=== PATIENT | female | born 1970 | race Caucasian/White ===

== ENCOUNTER 2025-06-04 13:26 | Outpatient (AMB) | payer OTHER, SELFPAY ==
--- NOTE | 2025-06-03 14:05 | A.PHYSOV_ITS ---
Vital Signs 06/04/25 13:47 Height 5 ft 6.5 in Weight 160 lb BMI 25.4 Intake Visit Reasons: B/L KNEE INJECTIONS Intake Note: Patient is a 55 year old female here for bilateral knee injections. Waste Handling Technician Required: No Allergies nitrofurantoin (From Macrobid) Allergy (Unknown, Verified 06/04/25 13:42) Unknown [facility] Surgical History H/O tubal ligation H/O: hysterectomy H/O gastric bypass Previous section History of back surgery Social History Alcohol intake: current Alcohol intake frequency: does not drink Patient Tobacco Use Status: Never used Tobacco Physical Exam Vital Signs: BMI result Body Mass Index 25.4 Office Procedures AMB Knee Injection AMB Knee Injection Procedure Details: Bilateral Knee injection: The risks, benefits and complications of the left knee injection were discussed with the patient including but not limited to increased serum glucose, infection, nerve pain, fat atrophy, pigment augmentation, bleeding and pain. All questions were answered to the patient's satisfaction. Verbal consent was obtained. The patient was eager to proceed. Using aseptic technique with Betadine, ethyl chloride was then used to desensitize the skin. Using a 22-gauge needle 40 mg of Kenalog and 3 mL 2% lidocaine were injected into the knee joint. A Band-Aid was applied. Patient tolerated the procedure well without immediate complication. Postinjection instructions were given. The procedure was repeated on the right. Knee Injection - : Bilateral All charges added?: Procedure code (CPT) selection complete Office Meds Kenalog 40 mg/mL suspension for injection Performing Provider: KASIA Onofre Performing Location: [facility] Administered by: KASIA Onofre on 06/04/25 14:16 Dose Route Admin Location Dispensed Lot Number Expiration Date [facility] Software Installation Engineer 40 mg intra-articular 1 mL [id number] [employer] Total Dispensed Waste 1 mL 0 % lidocaine (PF) 20 mg/mL (2 %) injection solution Performing Provider: KASIA Onofre [facility] Administered by: KASIA Onofre on 06/04/25 14:16 Dose Route Admin Location Dispensed Lot Number Expiration Date [facility] Software Installation Engineer 60 mg intra-articular 50 mL [id number] Total Dispensed Waste 50 mL 0 % Assessment & Plan Assessment & Plan (1) Primary osteoarthritis of knees, bilateral: Code(s): M17.0 - Bilateral primary osteoarthritis of knee Category: Medical Plan Ms. Todd is a 55-year-old female seen in evaluation today for bilateral knee osteoarthritis. Today she consented to bilateral knee cortisone injection. She was given post-injection instructions, recommend: Moist heat compresses for 15 minutes 5 times daily. She will continue low-impact activities such as walking, biking and swimming. Follow-up with our office as needed. Thank you for allowing me to participate in the care of your patient. Orders: Orders AMB Knee Injection Today M17.0 - Bilateral primary osteoarthritis of knee Coding Level of Care Code Procedure Only Diagnoses Primary osteoarthritis of knees, bilateral M17.0 CPT Codes AMB Knee Injection - Hip/Bursa Injection - : Bilateral ([id number])
[2025-06-04 13:47] VITALS: BMI 25.4
== END 2025-06-04 14:14 | disposition home or self-care (01) ==
LOC: HO.HPHYS 13:26
PROVIDERS: Visit Provider Physician Assistant
DX: M17.0 Bilateral primary osteoarthritis of knee (principal)
CPT/HCPCS: 20610

== ENCOUNTER → 2025-06-04 13:26 | Outpatient (BNVA) | payer OTHER, SELFPAY | PROVIDERS: Visit Provider Physician Assistant | DX: M17.0 Bilateral primary osteoarthritis of knee (principal) | CPT/HCPCS: 20610; J2003; J3301 ==